=== PATIENT | male | born 1970 | race African-American/Black ===

== ENCOUNTER 2025-02-12 20:13 | Emergency (ER) | payer OTHER ==
[~2025-02-12] VITALS: Ht 175.3 cm; Wt 77.1 kg
[2025-02-12 21:09] LABS: BASOPHILS % 0.6 % (0.0-2.0); EOSINOPHILS % 1.2 % (0.0-5.0); HEMATOCRIT. 44.4 % (42.0-52.0); HEMOGLOBIN. 14.6 g/dL (14.0-18.0); LYMPHOCYTES % 23.0 % (20.0-50.0); MEAN PLATELET VOLUME 8.7 fl (7.4-10.4); MONOCYTES % 9.3 % (2.0-8.0); NEUTROPHILS % 65.9 % (40.0-76.0); PLATELET 238 x1000/uL (130-400); RED BLOOD CELL COUNT 4.57 mill/uL (4.7-6.1); RED CELL DISTRIBUTION WIDTH 14.1 % (11.6-14.6)
[2025-02-12] MEDS: PREDNISONE 20MG TABLET PO ONE (21:13)
[2025-02-12 21:32] VITALS: PULSE 80; RESP 20; O2SAT 98
[2025-02-12] MEDS: ALBUTEROL (0.083%) 2.5MG/3ML NEB HHN ONE (21:32)
[2025-02-12 21:34] LABS: CREATININE 0.8 mg/dL (0.6-1.3); UREA NITROGEN BLOOD 6 mg/dL (9-23)
[2025-02-12 21:35] LABS: TROPONIN I HIGH SENSITIVITY < 4 ng/L (3.0-53)
[2025-02-12 22:15] VITALS: BP 127/86; PULSE 86; RESP 22; TEMP 37.1; O2SAT 98
== END 2025-02-12 22:32 | disposition home or self-care (01) ==
LOC: ER 20:13
DX: J45.901 Unspecified asthma with (acute) exacerbation (principal); I10 Essential (primary) hypertension; F17.200 Nicotine dependence, unspecified, uncomplicated
CPT/HCPCS: 80048; 83880; 85025; 84484; 36415; 71045; 94640; 93005; 99285; Z7610 ×2; J7512